=== PATIENT | female | born 1935 | race African-American/Black ===

== ENCOUNTER 2016-07-19 17:38 | Inpatient (IN) | payer OTHER ==
[~2016-07-19] VITALS: Ht 180.3 cm; Wt 123.1 kg
--- NOTE | ~2016-07-19 | HC ---
[facility] [place] [address] CONSULTATION Name: DELILAH GEIGER Room #: 428-P ADM IN M.R.#: [id number] Admission: 07/19/16 Attend Phys: Arnoldo Culp MD Discharge: Date of : 37 Report #: [id number] THIS REPORT FOR: //name// CC: Del Culp DATE OF SERVICE: 07/20/2016 REASON FOR CONSULTATION: Chronic kidney disease. HISTORY OF PRESENT ILLNESS: The patient is well known to our service with chronic kidney disease, chronic anemia, had been treated with Procrit and iron in our office. She was lost to followup. Apparently, she has been at [facility] where she has undergone EGD and colonoscopy for her anemia and according to the patient, nothing was found. She continues to have anemia. She has not been getting her Procrit. Her hemoglobin has fallen to 6.8. She is asymptomatic. She is at [facility] for rehabilitation. PAST MEDICAL HISTORY: Hypertension, diabetes, chronic kidney disease, anemia. She had previous cholecystectomy, appendectomy and hysterectomy. HOME MEDICATIONS: As listed from [facility] include Zetia 10 mg daily, Symbicort, Carafate, Cardizem-CD 420 mg daily, Nexium 40 mg daily, trazodone 50 mg at bedtime, Lyrica 100 mg b.i.d., aspirin 81 mg daily, atorvastatin 10 mg daily, iron 325 mg b.i.d., and Levemir. FAMILY HISTORY: Negative for renal disease, negative for diabetes, negative for heart disease. Positive for hypertension. REVIEW OF SYSTEMS: GENERAL: She has been feeling a little bit weak. EYES: Her vision has been okay. No problems there. ENT: Hearing okay, swallows okay. Denies mouth sores or ulcers. ENDOCRINE: Positive for the diabetes. RESPIRATORY: Denies shortness of breath, pleuritic pain, cough or hemoptysis. CARDIAC: Denies chest pain, angina or arrhythmia. No palpitations. GASTROINTESTINAL: Denies nausea, vomiting, diarrhea or bloody stools. GENITOURINARY: Good urinary stream without dysuria, hematuria or stones. NEUROLOGIC: Denies seizure, syncope or stroke. She does have some numbness in her feet. SKELETAL: Denies arthritis, but she is wheelchair bound and it is unclear as to why. SOCIAL HISTORY: Remote cigarettes, no alcohol. Lives at the extended care facility, hopes to go back home [place] [address] CONSULTATION Name: DELILAH GEIGER Room #: 428-P [facility] IN ..#: [id number] Admission: 07/19/16 Attend Phys: Arnoldo Culp MD Discharge: Date of : 36 Report #: [id number] PHYSICAL EXAMINATION: GENERAL: This is a reasonably well appearing, pale, elderly woman. SKIN: Otherwise, unremarkable. SKELETAL: Rather obese. HEENT: Extraocular movements are full. No scleral icterus. Hearing and vision intact. Mucous membranes moist. Tongue, buccal mucosa benign. NECK: Supple, no carotid bruits. CHEST: Clear to auscultation. HEART: Regular. ABDOMEN: Soft, no edema. ASSESSMENT AND PLAN: 1. Anemia. She has anemia of chronic disease. She has had workup including endoscopy, which has been negative. She was treated with IV iron as an outpatient. She was on Procrit, but was lost to followup. She needs to be continued on her Procrit shots. 2. Chronic kidney disease. She has diabetic and hypertensive chronic kidney disease with some degree of proteinuria. Currently, she has been on will need to consider . 3. Hypertension. 4. Weakness with chronic wheelchair dependence. By: [id number] Estuardo Ward MD /nt
--- NOTE | ~2016-07-19 | EKG ---
[address] [place] [address] ELECTROCARDIOGRAM REPORT Name: DELILAH GEIGER Room #: 428-P ADM IN M.R.#: [id number] Admission: 07/19/16 Attend Phys: Arnoldo Culp MD Discharge: Date of : 36 Report #: [id number] THIS REPORT FOR: //name// [facility] ED Test Date: 2016-07-19 Test Time: 19:28:13 Pat Name: DELILAH GEIGER Department: Room: [facility] Gender: F Edge Sander: TAWNYA : 1935 Requested By: Sander Ochoa Order Number: [id number] MD: Aníbal Shi Measurements Intervals [place] Rate: 82 P: -25 [place]: 150 QRS: -17 QRSD: 93 T: 25 QT: 385 QTc: 450 Interpretive Statements Sinus rhythm Borderline left axis deviation Low voltage, precordial leads Compared to ECG 05/31/2014 09:58:29 Low QRS voltage now present Atrial premature complex(es) no longer present Electronically Signed On 07-20-2016 7:38:10 CDT by Aníbal Shi [email or web address] <ELECTRONICALLY SIGNED> By: Aníbal Shi MD, [facility] 07/20/16 0738 192 27 Aníbal Shi MD, [facility] /EPI
[2016-07-19 17:38] VITALS: BP 137/67
[~2016-07-19 17:38] MED LIST: AMBIEN 10 MG TA10 MG PO; CARAFATE 1 GM TA1 G1 PO; CARDIZEM CD240 MG PO; CELEXA20 MG PO; COLACE100 MG PO; GLIPIZIDE 10 MG10 MG PO; NEURONTIN 300300 M1 PO; NEXIUM40 MG PO; NORCO 10-325 T1 EACH PO; POTASSIUM20 PO; PREDNISONE 10 M10 MG PO; SINGULAIR 10 MG10 M1 PO; SYMBICORT160 MCG/4. INH; TRIAMCINOLONE A80 G2 TOP; VITAMIN D 5050000 I1 PO; ZETIA10 MG PO
[2016-07-19 18:12] LABS: ABSOLUTE NEUTROPHILS 8.7 thou/uL (1.4-8.2); BASOPHILS 1.3 % (0.0-2.0); HEMATOCRIT 24.6 % (37.0-47.0); HEMOGLOBIN 7.7 gm/dL (12.0-15.0); LYMPHOCYTES 15.3 % (24.0-44.0); MCH 25.6 pg (26.0-34.0); MCHC 31.4 g/dL (28.0-37.0); MCV 81.5 fL (80.0-100.0); MONOCYTES 5.9 % (1.0-8.0); PLATELET COUNT 187 thou/uL (150-400); POLYS 74.5 % (36.0-66.0); RBC 3.02 mil/uL (4.20-5.00); RDW 19.5 % (10.5-14.5); WBC 11.6 thou/uL (4.0-11.0)
[2016-07-19 18:14] LABS: MANUAL DIFF NO
[2016-07-19 18:25] LABS: CALCIUM 9.3 mg/dL (8.5-10.1); CREATININE 3.6 mg/dL (0.6-1.0); POTASSIUM 4.3 mmol/L (3.5-5.1)
[2016-07-19 18:30] LABS: ALBUMIN 3.1 g/dL (3.4-5.0); TOTAL BILIRUBIN 0.2 mg/dL (<0.1-1.0); TOTAL PROTEIN 6.5 g/dL (6.4-8.2)
[2016-07-19 18:42] LABS: URINE BILIRUBIN NEGATIVE (Negative); URINE BLOOD 2+ (Negative); URINE COLOR YELLOW; URINE GLUCOSE-RANDOM* 1+ (Negative); URINE KETONES NEGATIVE (Negative); URINE NITRITE NEGATIVE (Negative); URINE PROTEIN (DIPSTICK) 1+ (Negative); URINE SPECIFIC GRAVITY 1.015 (1.003-1.035); URINE UROBILINOGEN 0.2 E.U./dl (0.2-1.0)
[2016-07-19 18:48] LABS: BACTERIA 1-9 Few /HPF (None Seen); CASTS None Seen /LPF (None Seen); CRYSTALS None Seen /LPF (None Seen); SQUAMOUS 4-10 Moderate /LPF (0-3); URINE RBC 0-2 Rare /HPF (0-2); URINE WBC 0-5 Rare /HPF (0-5)
[2016-07-19] MEDS ORDERED: CLARITIN10 MG PO (19:35)
[2016-07-19] MEDS ORDERED: FLONASE 0.05%50 MCG NASAL (19:35)
[2016-07-19] MEDS ORDERED: DUONEB 2.5-0.5 M3 ML INH (19:36)
[2016-07-19] MEDS ORDERED: MUCUS ER600 M1 PO (19:36)
[2016-07-19] MEDS ORDERED: TYLENOL325 MG PO (19:41)
[2016-07-19] MEDS ORDERED: TRAZODONE HCL50 MG PO (19:42)
[2016-07-19] MEDS ORDERED: CENTRUM SILVER1 EAC4 PO (19:42)
[2016-07-19] MEDS ORDERED: MIRALAX17 GM PO (19:43)
[2016-07-19] MEDS ORDERED: NORCO 5-325 TA1 EACH PO (19:43)
[2016-07-19] MEDS ORDERED: ASPIR 8181 MG PO (19:44)
[2016-07-19] MEDS ORDERED: LYRICA100 MG PO (19:44)
[2016-07-19] MEDS ORDERED: LIPITOR10 MG PO (19:45)
[2016-07-19] MEDS ORDERED: IRON325 PO (19:46)
[2016-07-19] MEDS ORDERED: LEVEMIR SUBQ (19:48)
[2016-07-19 21:21] VITALS: BP 144/72
[2016-07-19 22:20] VITALS: BP 157/68
[2016-07-20 04:00] VITALS: BP 109/60
[2016-07-20 06:26] LABS: HEMATOCRIT 21.9 % (37.0-47.0); MCH 25.9 pg (26.0-34.0); MCHC 31.9 g/dL (28.0-37.0); MCV 81.2 fL (80.0-100.0); RBC 2.7 mil/uL (4.20-5.00); RDW 19.4 % (10.5-14.5); WBC 9.1 thou/uL (4.0-11.0)
[2016-07-20 06:42] LABS: ALBUMIN 2.6 g/dL (3.4-5.0); ALKALINE PHOSPHATASE 60 U/L (46-116); ANION GAP 7 mmol/L (7-16); BUN 35 mg/dL (7-18); CALCIUM 8.9 mg/dL (8.5-10.1); CHLORIDE 110 mmol/L (98-107); CHOLESTEROL 112 mg/dL (<200); CO2 25 mmol/L (21-32); CREATININE 3.3 mg/dL (0.6-1.0); GLUCOSE 104 mg/dL (74-106); HDL CHOLESTEROL 43 mg/dL (>40); LDL CHOLESTEROL 57 mg/dL (<100); PHOSPHORUS 4.2 mg/dL (2.5-4.9); SGOT 13 U/L (15-37); SGPT 12 U/L (30-65); SODIUM 142 mmol/L (136-145); TC:HDL 2.6 Ratio (Not establshd); TOTAL BILIRUBIN 0.2 mg/dL (<0.1-1.0); TOTAL PROTEIN 5.7 g/dL (6.4-8.2); TRIGLYCERIDE 61 mg/dL (<150); VLDL 12 mg/dL (<40)
[2016-07-20 07:48] VITALS: BP 129/70
[2016-07-20 10:33] LABS: % SATURATION 10 % (20-39); IRON 19 ug/dL (50-170); TIBC 198 ug/dL (250-450); UIBC 179 ug/dL
[2016-07-20 15:52] VITALS: BP 126/61
[2016-07-20 19:45] VITALS: BP 132/72
[2016-07-20 23:07] LABS: URINE CREATININE-RANDOM* 90.4 mg/dL (Not Estab.); URINE PROTEIN-RANDOM* 37.9 mg/dL (Not Estab.)
[2016-07-21 04:24] VITALS: BP 120/56
[2016-07-21 05:56] LABS: RDW 19.1 % (10.5-14.5)
[2016-07-21 05:58] LABS: MCH 25.9 pg (26.0-34.0); MCHC 32.1 g/dL (28.0-37.0); MCV 80.9 fL (80.0-100.0); RBC 2.59 mil/uL (4.20-5.00); WBC 8.9 thou/uL (4.0-11.0)
[2016-07-21 06:19] LABS: HEMOGLOBIN 6.7 gm/dL (12.0-15.0)
[2016-07-21 07:30] VITALS: BP 143/68
[2016-07-21 08:55] VITALS: BP 147/72; BP 155/71
[2016-07-21 12:44] VITALS: BP 147/77; BP 155/71; BP 164/76
[2016-07-21 13:24] LABS: CALCIUM 9.4 mg/dL (8.5-10.1); CREATININE 3.1 mg/dL (0.6-1.0); POTASSIUM 3.7 mmol/L (3.5-5.1)
[2016-07-21 15:30] VITALS: BP 168/72
[2016-07-21 20:00] VITALS: BP 173/78
[2016-07-22 04:30] VITALS: BP 151/72
[2016-07-22 06:05] LABS: HEMATOCRIT 28.7 % (37.0-47.0); HEMOGLOBIN 9.5 gm/dL (12.0-15.0); MCH 26.7 pg (26.0-34.0); MCHC 33.3 g/dL (28.0-37.0); MCV 80.2 fL (80.0-100.0); RBC 3.57 mil/uL (4.20-5.00); RDW 17.6 % (10.5-14.5); WBC 10.2 thou/uL (4.0-11.0)
[2016-07-22 06:19] LABS: ALBUMIN 2.7 g/dL (3.4-5.0); CALCIUM 9.4 mg/dL (8.5-10.1); CREATININE 2.8 mg/dL (0.6-1.0); PHOSPHORUS 3.4 mg/dL (2.5-4.9); POTASSIUM 3.5 mmol/L (3.5-5.1)
[2016-07-22 07:27] VITALS: BP 139/62
[2016-07-22 16:28] VITALS: BP 148/75
[2016-07-22 20:00] VITALS: BP 146/65
[2016-07-23 04:42] LABS: HEMATOCRIT 29.3 % (37.0-47.0); HEMOGLOBIN 9.7 gm/dL (12.0-15.0)
[2016-07-23 04:53] LABS: CREATININE 2.8 mg/dL (0.6-1.0); POTASSIUM 3.2 mmol/L (3.5-5.1)
[2016-07-23 05:03] VITALS: BP 139/52
[2016-07-23 07:04] VITALS: BP 134/60
[2016-07-23] MEDS ORDERED: LASIX 40 MG TAB40 M1 PO (13:43)
[2016-07-23] MEDS ORDERED: K-DUR 20 MEQ T20 MEQ PO (13:43)
[2016-07-23] MEDS ORDERED: PROCRIT20000 UNIT SUBQ (13:43)
[2016-07-23] MEDS ORDERED: HUMALOG100 UNIT/1 SUBQ (13:43)
== END 2016-07-23 15:16 | DRG 378 ==
LOC: ER 17:38 → 4E 20:42 → EROBS 20:42 → 4E 21:39
PROVIDERS: Internal Medicine; Internal Medicine Gastroenterology; Internal Medicine Nephrology; Nurse Practitioner Adult Health; Nurse Practitioner Family; Physician Assistant
PROC: 30233N1 Transfusion of Nonautologous Red Blood Cells into Peripheral Vein, Percutaneous Approach (ICD-10-PCS; principal; 2016-07-21)
DX: K92.2 Gastrointestinal hemorrhage, unspecified (principal); D62 Acute posthemorrhagic anemia; N17.9 Acute kidney failure, unspecified; E78.5 Hyperlipidemia, unspecified; J44.9 Chronic obstructive pulmonary disease, unspecified; Z87.891 Personal history of nicotine dependence; D53.9 Nutritional anemia, unspecified; E11.22 Type 2 diabetes mellitus with diabetic chronic kidney disease; I12.9 Hypertensive chronic kidney disease with stage 1 through stage 4 chronic kidney disease, or unspecified chronic kidney disease; N18.9 Chronic kidney disease, unspecified; F41.9 Anxiety disorder, unspecified; G89.29 Other chronic pain; M54.9 Dorsalgia, unspecified; D50.9 Iron deficiency anemia, unspecified; E11.40 Type 2 diabetes mellitus with diabetic neuropathy, unspecified; Z88.2 Allergy status to sulfonamides; Z90.49 Acquired absence of other specified parts of digestive tract; Z90.710 Acquired absence of both cervix and uterus; Z82.49 Family history of ischemic heart disease and other diseases of the circulatory system; Z99.3 Dependence on wheelchair; Z79.899 Other long term (current) drug therapy
CPT/HCPCS: 10183

== ENCOUNTER 2020-04-12 14:52 | Inpatient (IN) | payer OTHER ==
[~2020-04-12] VITALS: Ht 180.3 cm; Wt 90.0 kg
--- NOTE | ~2020-04-12 | EMS ---
[place] [address] EMS Patient Care Report Name: DELILAH GEIGER Room #: REG BETZAIDA Mccabe#: [id number] Admission: 04/12/20 Attend Phys: Discharge: Date of : 36 Report #: [id number] THIS REPORT FOR: //name// Report Transmitted: 04/12/2020 14:57 EMS Care Summary [place], [place] Incident [id number] @ 04/12/2020 14:20 Incident [id number] [place] [address] 201 Patient DELILAH GEIGER Female, 84 Years 1935 Patient Address [id number] [place] [address] Patient History Dialysis, Patient Allergies No known allergies, Patient Medications None Reported, Chief Complaint cough Disposition Transported No Lights/[place] Dispatch Reason Sick Person Transported To [facility] Narrative pt found sitting upright in wheelchair and alert. pt a&ox4 gcs 15 and did not present in apparent distress. pt was given a facemask. pt complained of a cough x1 day. pt denied any other symptoms. pt denied a fever or flu like symptoms. [address] [address] EMS Patient Care Report Name: DELILAH GEIGER Room #: REG BETZAIDA Mccabe#: [id number] Admission: 04/12/20 Attend Phys: Discharge: Date of : 36 Report #: [id number] pt denied any known covid exposure. pt requested to be transported to [facility]. pt was wheeled into hallway. pt was transferred onto ems cot and was secured in a semi fowlers position without incident. pt was loaded into ambulance. pt was transported non emergent. transport was uneventful and pt rested on ems cot. pt care was transferred to appropriate staff and ems goes back in service. pts keys and phone were left with pt. Initial Vitals @14:32P: 100,R: 20,BP: 176/86,Pain: 0/10,GCS: 15,SpO2: 92,Revised Trauma: 12, @14:46P: 100,R: 20,BP: 176/82,GCS: 15,SpO2: 93,Revised Trauma: 12, Assessments @14:27MENTAL:No Abnormalities,SKIN:No Abnormalities,HEENT:Head/Face: No Abnormalities,Eyes: No Abnormalities,Neck/Airway: No Abnormalities,LUNG SOUNDS:General: No Abnormalities,Left Upper: No Abnormalities,Right Upper: No Abnormalities,Left Lower: No Abnormalities,Right Lower: No Abnormalities,ABDOMEN:General: No Abnormalities,Left Upper: No Abnormalities,Right Upper: No Abnormalities,Left Lower: No Abnormalities,Right Lower: No Abnormalities,PELVIS//GI:No Abnormalities,EXTREMITIES:Left Arm: No Abnormalities,Right Arm: No Abnormalities,Left Leg: No Abnormalities,Right Leg: No Abnormalities,PULSE:NEURO:No Abnormalities,@14:41MENTAL:No Abnormalities,SKIN:No Abnormalities,HEENT:Head/Face: No Abnormalities,Eyes: No Abnormalities,Neck/Airway: No Abnormalities,LUNG SOUNDS:General: No Abnormalities,Left Upper: No Abnormalities,Right Upper: No Abnormalities,Left Lower: No Abnormalities,Right Lower: No Abnormalities,ABDOMEN:General: No Abnormalities,Left Upper: No Abnormalities,Right Upper: No Abnormalities,Left Lower: No Abnormalities,Right Lower: No Abnormalities,PELVIS//GI:No Abnormalities,EXTREMITIES:Left Arm: No Abnormalities,Right Arm: No Abnormalities,Left Leg: No Abnormalities,Right Leg: No Abnormalities,PULSE:NEURO:No Abnormalities, Impression Cough Procedures @14:27ALS AssessmentResponse: UnchangedSucceeded Timeline 14:18,Call Received 14:18,Dispatch Notified 14:20,Dispatched 14:21,En Route 14:26,On Scene 14:27,At Patient 14:27,ALS Assessment,Response: UnchangedSucceeded, 14:32,BP: 176/86 M,PULSE: 100,RR: 20 R,SPO2: 92 Ox,ETCO2: ,BG: ,PAIN: 0,GCS: [address] [address] EMS Patient Care Report Name: DELILAH GEIGER Room #: REG [facility].#: [id number] Admission: 04/12/20 Attend Phys: Discharge: Date of : 37 Report #: [id number] 15, 14:38,Depart Scene 14:46,BP: 176/82 M,PULSE: 100,RR: 20 R,SPO2: 93 Ox,ETCO2: ,BG: ,PAIN: ,GCS: 15, 14:47,At Destination 14:57,Call Closed Disclaimer v1.1 Copyright 2020 [employer] This EMS Care Summary contains data elements from the applicable legal record (which may be displayed differently). It is designed to provide pertinent information for the following purposes: continuity of care, clinical quality, and state data reporting. The complete legal record is available to ED staff and administrators of the receiving hospital in [employer]'s Patient Tracker. All data is provided "as is."
[~2020-04-12 14:52] MED LIST changes: +ASPIR 8181 MG PO; +CENTRUM SILVER1 EAC4 PO; +CLARITIN10 MG PO; +DUONEB 2.5-0.5 M3 ML INH; +FLONASE 0.05%50 MCG NASAL; +HUMALOG100 UNIT/1 SUBQ; +IRON325 PO; +K-DUR 20 MEQ T20 MEQ PO; +LASIX 40 MG TAB40 M1 PO; +LEVEMIR SUBQ; +LIPITOR10 MG PO; +LYRICA100 MG PO; +MIRALAX17 GM PO; +MUCUS ER600 M1 PO; +NORCO 5-325 TA1 EACH PO; +PROCRIT20000 UNIT SUBQ; +TRAZODONE HCL50 MG PO; +TYLENOL325 MG PO
[2020-04-12 14:56] VITALS: BP 169/88
[2020-04-12 16:40] LABS: WBC 6.2 thou/uL (4.0-11.0)
[2020-04-12 16:42] LABS: ANION GAP 8 mmol/L (7-16); BUN 50 mg/dL (7-18); CALCIUM 8.4 mg/dL (8.5-10.1); CHLORIDE 102 mmol/L (98-107); CO2 26 mmol/L (21-32); CREATININE 6.1 mg/dL (0.6-1.0); GLUCOSE 91 mg/dL (74-106); HEMATOCRIT 30.4 % (37.0-47.0); HEMOGLOBIN 9.4 gm/dL (12.0-15.0); MCH 26.7 pg (26.0-34.0); MCV 86.1 fL (80.0-100.0); PLATELET COUNT 200 thou/uL (150-400); POTASSIUM 4.8 mmol/L (3.5-5.1); RBC 3.53 mil/uL (4.20-5.00); SODIUM 136 mmol/L (136-145)
[2020-04-12 16:53] LABS: ALBUMIN 3.7 g/dL (3.4-5.0); AMYLASE 93 U/L (25-115); DIRECT BILIRUBIN < 0.1 mg/dL (<0.1-0.2); LIPASE 107 U/L (73-393); MAGNESIUM 2.3 mg/dL (1.8-2.4); SGOT 22 U/L (15-37); SGPT 30 U/L (14-59); TOTAL BILIRUBIN 0.3 mg/dL (0.2-1.0); TOTAL PROTEIN 6.3 g/dL (6.4-8.2); TROPONIN-I <0.06 ng/mL (<0.06)
[2020-04-12 17:13] LABS: ABSOLUTE NEUTROPHILS 4.5 thou/uL (1.4-8.2)
[2020-04-12 17:14] LABS: OVALOCYTES FEW; SCHISTOCYTES 1+; TARGET CELLS 1+
[2020-04-12] MEDS ORDERED: TORSEMIDE10 MG PO (17:31)
[2020-04-12] MEDS ORDERED: NORCO 10-325 T1 EACH PO (17:31)
[2020-04-12] MEDS ORDERED: DILTIAZEM ER420 MG PO (17:32)
[2020-04-12] MEDS ORDERED: NEURONTIN 300M300 M2 PO (17:32)
[2020-04-12 17:59] LABS: ALBUMIN 3.7 g/dL (3.4-5.0); TOTAL PROTEIN 6.4 g/dL (6.4-8.2)
[2020-04-12 22:09] VITALS: BP 144/68
[2020-04-12 22:56] VITALS: BP 161/81
[2020-04-12 23:06] VITALS: BP 134/74
[2020-04-13 01:22] LABS: URINE BILIRUBIN NEGATIVE (Negative); URINE BLOOD TRACE (Negative); URINE CLARITY CLEAR; URINE COLOR YELLOW; URINE GLUCOSE-RANDOM* TRACE (Negative); URINE KETONES 1+ (Negative); URINE LEUKOCYTES-REFLEX NEGATIVE (Negative); URINE NITRITE-REFLEX NEGATIVE (Negative); URINE PROTEIN (DIPSTICK) 2+ (Negative); URINE SPECIFIC GRAVITY 1.015 (1.005-1.035); URINE UROBILINOGEN 0.2 E.U./dl (0.2-1.0)
[2020-04-13 01:42] LABS: BACTERIA-REFLEX 1-9 Few /HPF (None Seen); CASTS None Seen /LPF (None Seen); CRYSTALS None Seen /LPF (None Seen); MUCUS 0-3 Light strn/LPF (None Seen); SQUAMOUS 0-3 Few /LPF (0-3); URINE RBC 0-2 Rare /HPF (0-2); URINE WBC-REFLEX 6-15 Few /HPF (0-5)
[2020-04-13 01:43] LABS: WBC CLUMPS Few (None Seen)
[2020-04-13 03:07] VITALS: BP 150/77
[2020-04-13 07:28] VITALS: BP 152/79
[2020-04-13 11:25] VITALS: BP 170/99
[2020-04-13 11:32] LABS: ALBUMIN 3.4 g/dL (3.4-5.0); CALCIUM 8.3 mg/dL (8.5-10.1); CREATININE 6.1 mg/dL (0.6-1.0); PHOSPHORUS 4.2 mg/dL (2.6-4.7)
[2020-04-13 16:05] VITALS: BP 169/83
[2020-04-13 22:30] VITALS: BP 167/77
[2020-04-14 05:45] LABS: ALBUMIN 3.3 g/dL (3.4-5.0); CALCIUM 8.6 mg/dL (8.5-10.1); PHOSPHORUS 4.1 mg/dL (2.5-4.9); POTASSIUM 4.7 mmol/L (3.5-5.1)
[2020-04-14 05:50] VITALS: BP 163/89
--- NOTE | 2020-04-14 07:25 | EKG ---
[address] [address] ELECTROCARDIOGRAM REPORT Name: DELILAH GEIGER Room #: 359-P ADM IN M.R.#: [id number] Admission: 04/12/20 Attend Phys: Jeffrey Francisco MD Discharge: Date of : 36 Report #: [id number] [facility] ED Test Date: 2020-04-12 Test Time: 17:14:13 Pat Name: DELILAH GEIGER Department: Room: [facility] Gender: F Tool Straightener: JCHAIJAYANTZ : 1935 Requested By: Yadiel Correa Order Number: [id number] MD: Aníbal Shi Measurements Intervals [place] Rate: 90 P: 66 [place]: 177 QRS: -36 QRSD: 102 T: 42 QT: 382 QTc: 468 Interpretive Statements Sinus rhythm Atrial premature complexes Left axis deviation Abnormal R-wave progression, late transition Compared to ECG 07/19/2016 19:28:13 Atrial premature complex(es) now present Electronically Signed On 04-14-2020 7:25:36 CARE PROGRAM RESIDENT by Aníbal Shi [email or web address] <ELECTRONICALLY SIGNED> By: Aníbal Shi MD, [facility] 04/14/20 0725 1714 1714 Aníbal Shi MD, [facility] /EPI
[2020-04-14 08:00] VITALS: BP 169/87
[2020-04-14 12:00] VITALS: BP 154/96
[2020-04-14] MEDS ORDERED: METOPROLOL TART25 MG PO (12:19)
[2020-04-14] MEDS ORDERED: DILTIAZEM ER420 MG PO (12:19)
[2020-04-14 15:37] VITALS: BP 154/96
[2020-04-14 15:38] VITALS: BP 147/104
[2020-04-14 20:41] VITALS: BP 163/75
[2020-04-15 04:16] VITALS: BP 125/67
[2020-04-15 12:42] VITALS: BP 135/70
== END 2020-04-15 18:13 | DRG 291 ==
LOC: ER 14:52 → EROBS 21:26 → 3W 21:26
PROVIDERS: Emergency Medicine; Hospitalist; Internal Medicine; Nurse Practitioner Family; ADMIT Hospitalist; ATTEND Hospitalist
PROC: 5A1D70Z Performance of Urinary Filtration, Intermittent, Less than 6 Hours Per Day (ICD-10-PCS; principal; 2020-04-14)
DX: I13.2 Hypertensive heart and chronic kidney disease with heart failure and with stage 5 chronic kidney disease, or end stage renal disease (principal); N18.6 End stage renal disease; I50.31 Acute diastolic (congestive) heart failure; J81.1 Chronic pulmonary edema; E11.22 Type 2 diabetes mellitus with diabetic chronic kidney disease; E78.5 Hyperlipidemia, unspecified; J44.9 Chronic obstructive pulmonary disease, unspecified; F41.9 Anxiety disorder, unspecified; D50.9 Iron deficiency anemia, unspecified; Z20.822 Contact with and (suspected) exposure to COVID-19; Z99.2 Dependence on renal dialysis; Z79.4 Long term (current) use of insulin; Z79.899 Other long term (current) drug therapy; Z88.2 Allergy status to sulfonamides; Z87.891 Personal history of nicotine dependence; Z90.49 Acquired absence of other specified parts of digestive tract; Z90.710 Acquired absence of both cervix and uterus
CPT/HCPCS: 10879; 32100

== ENCOUNTER 2020-07-03 15:30 | Emergency (ER) | payer OTHER ==
[~2020-07-03] VITALS: Ht 177.8 cm; Wt 78.9 kg
[~2020-07-03 15:30] MED LIST changes: +DILTIAZEM ER420 MG PO; +METOPROLOL TART25 MG PO; +NEURONTIN 300M300 M2 PO; +TORSEMIDE10 MG PO
[2020-07-03 16:31] LABS: ABSOLUTE NEUTROPHILS 3.9 thou/uL (1.4-8.2); BASOPHILS 1.5 % (0.0-2.0); EOSINOPHILS 1.8 % (0.0-3.0); HEMATOCRIT 34.9 % (37.0-47.0); HEMOGLOBIN 11.1 gm/dL (12.0-15.0); MCH 26.1 pg (26.0-34.0); MCHC 31.7 g/dL (28.0-37.0); MCV 82.4 fL (80.0-100.0); MONOCYTES 13.1 % (1.0-8.0); PLATELET COUNT 191 thou/uL (150-400); POLYS 56.6 % (36.0-66.0); RBC 4.24 mil/uL (4.20-5.00); RDW 17.5 % (10.5-14.5)
[2020-07-03 16:41] LABS: ANION GAP 8 mmol/L (7-16); BUN 23 mg/dL (7-18); CALCIUM 8.9 mg/dL (8.5-10.1); CHLORIDE 98 mmol/L (98-107); CO2 30 mmol/L (21-32); GLUCOSE 160 mg/dL (74-106); SODIUM 136 mmol/L (136-145)
[2020-07-03 16:48] LABS: ALBUMIN 3.1 g/dL (3.4-5.0); DIRECT BILIRUBIN < 0.1 mg/dL (<0.1-0.2); LIPASE 125 U/L (73-393); SGOT 17 U/L (15-37); SGPT 18 U/L (30-65); TOTAL BILIRUBIN 0.3 mg/dL (0.2-1.0); TOTAL PROTEIN 7.1 g/dL (6.4-8.2)
[2020-07-03] MEDS ORDERED: HYDROCODON-ACE1 EAC7 PO (18:28)
[2020-07-03 18:46] VITALS: BP 128/58
== END 2020-07-03 18:47 | disposition home or self-care (01) ==
LOC: ER 15:30
PROVIDERS: Nurse Practitioner
DX: R10.32 Left lower quadrant pain (principal); M25.552 Pain in left hip; G89.29 Other chronic pain; E78.5 Hyperlipidemia, unspecified; D64.9 Anemia, unspecified; I10 Essential (primary) hypertension; J44.9 Chronic obstructive pulmonary disease, unspecified; F41.9 Anxiety disorder, unspecified; Z79.899 Other long term (current) drug therapy; Z88.2 Allergy status to sulfonamides

== ENCOUNTER 2020-08-20 10:36 | Emergency (ER) | payer OTHER ==
[~2020-08-20] VITALS: Ht 180.3 cm; Wt 78.9 kg
[~2020-08-20 10:36] MED LIST changes: +HYDROCODON-ACE1 EAC7 PO
[2020-08-20 15:09] VITALS: BP 111/50
== END 2020-08-20 15:09 | disposition home or self-care (01) ==
LOC: ER 10:36
DX: S09.8XXA Other specified injuries of head, initial encounter (principal); M25.512 Pain in left shoulder; M25.552 Pain in left hip; J44.9 Chronic obstructive pulmonary disease, unspecified; Z87.891 Personal history of nicotine dependence; Z88.2 Allergy status to sulfonamides; Z79.899 Other long term (current) drug therapy; Z79.4 Long term (current) use of insulin; Z86.2 Personal history of diseases of the blood and blood-forming organs and certain disorders involving the immune mechanism; W17.89XA Other fall from one level to another, initial encounter; Y93.89 Activity, other specified; Y92.89 Other specified places as the place of occurrence of the external cause; Y99.8 Other external cause status

== ENCOUNTER 2020-08-22 20:35 | Inpatient (IN) | payer OTHER ==
[~2020-08-22] VITALS: Ht 180.3 cm; Wt 84.9 kg
[2020-08-22 20:37] VITALS: BP 115/61
[2020-08-22 22:32] LABS: CALCIUM 9.5 mg/dL (8.5-10.1); CREATININE 4.1 mg/dL (0.6-1.0); POTASSIUM 4.5 mmol/L (3.5-5.1)
[2020-08-22 23:12] LABS: ABSOLUTE NEUTROPHILS 5.6 thou/uL (1.4-8.2); BASOPHILS 0.8 % (0.0-2.0); EOSINOPHILS 1.6 % (0.0-3.0); HEMATOCRIT 31.7 % (37.0-47.0); HEMOGLOBIN 9.9 gm/dL (12.0-15.0); MCH 25.3 pg (26.0-34.0); MCHC 31.2 g/dL (28.0-37.0); MCV 80.9 fL (80.0-100.0); MONOCYTES 13.2 % (1.0-8.0); PLATELET COUNT 202 thou/uL (150-400); POLYS 70.4 % (36.0-66.0); RBC 3.92 mil/uL (4.20-5.00); RDW 18.5 % (10.5-14.5)
[2020-08-23 00:49] LABS: URINE BILIRUBIN NEGATIVE (Negative); URINE BLOOD TRACE (Negative); URINE CLARITY CLEAR; URINE COLOR YELLOW; URINE GLUCOSE-RANDOM* TRACE (Negative); URINE KETONES NEGATIVE (Negative); URINE LEUKOCYTES-REFLEX NEGATIVE (Negative); URINE NITRITE-REFLEX NEGATIVE (Negative); URINE PROTEIN (DIPSTICK) 2+ (Negative); URINE UROBILINOGEN 0.2 E.U./dl (0.2-1.0)
[2020-08-23 01:19] LABS: BACTERIA-REFLEX 1-9 Few /HPF (None Seen); CASTS None Seen /LPF (None Seen); CRYSTALS None Seen /LPF (None Seen); MUCUS 0-3 Light strn/LPF (None Seen); SQUAMOUS 0-3 Few /LPF (0-3); URINE RBC 1-2 Rare /HPF (NONE SEEN); URINE WBC-REFLEX 0-5 Rare /HPF (0-5)
[2020-08-23 03:35] VITALS: BP 110/44
--- NOTE | 2020-08-23 07:05 | NUR ---
TOOK OVER CARE FROM DANE TAYLOR AT THIS TIME
--- NOTE | 2020-08-23 08:44 | NUR ---
WENT TO GIVEN PT PO TYLENOL FOR STATED PAIN. PT TOO DROWSY AT THIS TIME TO SAFELY ADMINISTER MEDICAITON. PT DAUGHTER AT BEDSIDE. CALL LIGHT WITHIN REACH
[2020-08-23 09:22] VITALS: BP 116/38
--- NOTE | 2020-08-23 09:55 | NUR ---
REPORT GIVEN TO DANE CHAIDEZ PT READY TO TRANSFER
[2020-08-23 10:00] VITALS: BP 106/35
[2020-08-23 10:56] VITALS: BP 103/38
--- NOTE | 2020-08-23 11:24 | EKG ---
[address] [address] ELECTROCARDIOGRAM REPORT Name: DELILAH GEIGER Room #: 455-P ADM IN M.R.#: [id number] Admission: 08/23/20 Attend Phys: Rekha Marin MD Discharge: Date of : 37 Report #: [id number] [facility] ED Test Date: 2020-08-22 Test Time: 23:16:32 Pat Name: DELILAH GEIGER Department: Room: [facility] Gender: F Consumer Safety Inspector: mpark : 1935 Requested By: Frandy Barraza Order Number: [id number] MD: Manas Raman Measurements Intervals [place] Rate: 83 P: 54 OR: 177 QRS: -29 QRSD: 111 T: 17 QT: 410 QTc: 482 Interpretive Statements Sinus rhythm Atrial premature complexes Probable left atrial enlargement Borderline left axis deviation Low voltage, precordial leads RSR' in V1 or V2, probably normal variant Compared to ECG 04/12/2020 17:14:13 Low QRS voltage now present RSR' in V1 or V2 now present Electronically Signed On 08-23-2020 11:24:15 CDT by Manas Raman [email or web address] <ELECTRONICALLY SIGNED> By: Manas Raman MD 08/23/20 1124 2316 2316 Manas Raman MD /EPI
--- NOTE | 2020-08-23 12:26 | NUR ---
ASSUMED PT CARE UPON ADMISSION TO UNIT FROM ED AROUND 1030. PATIENT IS A&OX3 AND ABLE TO MAKE ALL NEEDS KNOWN. PATIENT REPORTS WEAKNESS IN BILATERAL LOWER EXTREMETIES WELL PAIN IN THE LOWER EXTREMETIES. PATIENT HAS AN IV, SALINE LOCKED. PATIENT HAS A FISTULA TO THE LEFT UPPER ARM, LIMB ALERT BRACELET PLACED ON LEFT ARM. PATIENT REPORTS RECEIVING DIALYSIS ON MWF, AND IS UP TO DATE ON HER DIALYSIS. BLOOD PRESSURE MEDICATION HELD DUE TO PATIENT BLOOD PRESSURE. PATIENT REFUSED IRON TABLET ORDERED, RELAYING THAT SHE DOES NOT TAKE THIS MEDICATION. PATIENT REPORTS BEING INCONTINENT. FALL PRECAUTIONS ARE IN PLACE, CALL LIGHT WITHIN REACH. PATIENT SLEEPING AT THIS TIME, WILL ATTEMPT TO HAVE PATIENT SIGN CONSENTS WHEN AWAKE.
[2020-08-23 15:56] VITALS: BP 100/34
[2020-08-23 21:16] VITALS: BP 130/43
--- NOTE | 2020-08-24 03:37 | NUR ---
RECEIVED CARE OF THIS PATIENT AT 1900. PATIENT ALERT AND ORIENTED X3-4. NOT ALWAYS PLACE. L UPPER FISTULA. GOOD BRUIT AND THRILL. HAS DIALYSIS M/W/F. ACCUCHECK WAS 121, RECEIVED NO COVERAGE. C/O PAIN, MED GIVEN. SLEPT MOST OF THE NIGHT.
[2020-08-24 08:30] VITALS: BP 120/54
--- NOTE | 2020-08-24 17:08 | NUR ---
Patient complained of pain in low back and legs, pain medication given and worked, no n/v, had a rest on the chair, back to the bed now.
[2020-08-24 19:28] VITALS: BP 127/50
--- NOTE | 2020-08-25 03:07 | NUR ---
PT CARE ASSUMED WITH PT IN BED WATCHING TV AT SHIFT CHANGE.PT IS A/O X4.PT IS ON BEDREST.PT HAS DIALYSIS ACCESS AV FISTULA GRANT AND HAS DIALYSIS M--.PT HAS BLE EDEMA +1.PT IS ACCUCHECK ACHS WITH SSI.PT APPEAR TO BE IN NO ACUTE DISTRESS.WILL CONTINUE TO MONITOR
[2020-08-25 08:39] VITALS: BP 121/53
--- NOTE | 2020-08-25 16:38 | NUR ---
PT ADMITTED RELATED TO WEAKNESS, RECENT FALL OUT OF W/C. CM REVEIWED CHART AND SPOKE WITH CARE TEAM. CM MET WITH PT AT BEDSIDE THIS DAY. PT APPEARED TO BE A&O X4. CM ROLE INTRODUCED. PT INDICATED SHE LIVES IN AN INDEPEDNENT APARTMENT AT THE [facility] IN [place]. 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 PT INDICATED SHE DOES OP HD AT [facility] M, W,F, 10:45 CHIAR TIME AND THAT THE WHOLE PERSON PROVIDES HER TRANSPORT. PT INICATED SHE HAD BEEN INDEPDENENT WITH [facility] HOME ECONOMICS TEACHER. PT STATED SHE HAD BEEN SKILLED AT [facility] IN THE PAST AND THAT SHE WOULD BE INTERESTED IN GOING THERE AGAIN UPON DC IF POSSIBLE. CM FAXED REFERRAL AND THE CAN ACCEPT. PT HAS AUTO AUTH BUT THEY NEED A HEP PANEL TO ESTABLISH PT WITH AN IN HOUSE HD CHAIR TIME. CM REQUESTED HEP PANEL FROM PHYSICIAN. CM FOLLOWING REGARDING POSSIBLE DC TOMORROW TO [facility].
--- NOTE | 2020-08-25 20:07 | NUR ---
Assumed pt care at 7am.Pt in bed alert and oriented x4. Assessment completed. vss.Pt wanted hemodialysis early this shift per regular scheduled at home. Dr Yoder notified,he rounded on pt. Hemodialysis done and completed mid afternoon.Pt c/o bilateral leg pain and requested for tylenol.It was given as ordered but pt said it doesn't work like gabapentin.Fall bundle in place for pt safety. Report off to chris rn.
[2020-08-25 20:23] VITALS: BP 118/56
--- NOTE | 2020-08-26 03:18 | NUR ---
PT CARE ASSUMED WITH PT IN CHAIR WATCHING TV AT 1900.PT IS A/O X4.PT IS UP WITH X1 ASSIST WITH WALKER AND GAIT BELT TO [facility].PT C/O ITCHING AND INFRASTRUCTURE DIRECTOR SARAH NOTIFIED AND BENADRYL GIVEN WITH RELIEF.PT HAD A BM DURING SHIFT.PT IS ACCUCHECK ACHS WITH SSI.DIALYSIS ACCESS ON GRANT AV FISTULA.WILL CONTINUE TO MONITOR PER POC
[2020-08-26 07:43] VITALS: BP 107/41
[2020-08-26 12:10] LABS: ALBUMIN 2.5 g/dL (3.4-5.0); DIRECT BILIRUBIN < 0.1 mg/dL (<0.1-0.2); SGOT 20 U/L (15-37); SGPT 21 U/L (14-59); TOTAL BILIRUBIN 0.3 mg/dL (0.2-1.0); TOTAL PROTEIN 6.5 g/dL (6.4-8.2)
--- NOTE | 2020-08-26 15:13 | NUR ---
HEP PANEL HADN'T BEEN ORDERED YESTERDAY EVENING REQUESTED. IT HAD SINCE BEEN DRAWN AND IS PENDING. CM CONVEYED THIS TO [facility]. CM FAXED UPDATED CLINICAL. PT IS TO GET DIALYSIS TOMORROW. CM FOLLOWING REGARDING DC LATER THIS AFTERNOON OR TOMORROW AFTER DIALYSIS.
[2020-08-26 15:37] VITALS: BP 120/63
--- NOTE | 2020-08-26 15:48 | NUR ---
ASSUMP PATIENT AT 7:00 AM. NONE INSULINE GIVEN AND 3 UNITES GIVEN PER POTOCOL. MORNING BP MEDICINE WERE HELD DUE TO LOW BP AND PT REFUSED TO TAKE IRON PILL DUE TO TAKE IT DURING DIALYSIS. PERFORMED COVID TEST AND RESULT NEGATIVE. PT REPORT PAIN ON LEGS AND GIVEN GABAPENTINE. PT REPORT PARCIAL RELIEF AFTER 1 HOUR REASSESSMENT. FALL RISK INTERVENTIONS APPLIED. WILL KEEP MONITOR PATIENT FOR VITAL SIGN, I&O AND SAFETY UNTIL SHIFT END.
[2020-08-26 20:00] VITALS: BP 170/108
[2020-08-26 22:21] VITALS: BP 114/56
--- NOTE | 2020-08-27 03:15 | NUR ---
PT CARE ASSUMED WITH PT SITTING IN CHAIR WATCHING TV.PT IS A/O X4.PT C/O HEART BURN AND DR ESPINOSA NOTIFIED AND ATIF ORDERED PRN.PT VOMITEED ONCE AND FELT BETTER AFTER VOMITING.PT TAKE MEDICATIONS WHOLE WITH NO ISSUES.PT HAS DIALYSIS ON -- AND DIALYSIS ACCESS ON GRANT AV FISTULA.PT HAS TYLENOL FOR PAIN MANGEMENT.PT IS UP X1 TO [facility] WITH GAIT BELT AND WALKER.WILL CONTINUE TO MONITOR
[2020-08-27 07:09] LABS: HAV IgM AB (ANTI-HAV IgM) Negative (Negative); HEPATITIS B SURFACE AG Negative (Negative); HEPATITIS C VIRUS AB <0.1 (0.0-0.9)
[2020-08-27 10:05] VITALS: BP 109/60
[2020-08-27 11:47] VITALS: BP 115/65
--- NOTE | 2020-08-27 14:09 | NUR ---
CARE TEAM INDICATED THAT PT IS MEDICALLY STABLE TO DC TO [facility] THIS DAY. PT IS FINISHED WITH DIALYSIS TREATMENT. ORDERS COMPLETED. CM FAXED TO [facility]. CHART COPY MADE. WHEELCHAIR VAN TRANSPORT ARRANGED FOR 1529. CM NOTIFED PT AND HER DEV OPS ENGINEER WHO WAS VISITING. PT TO HAVE IN HOUSE DIALYSIS WHILE AT THE [facility]. NO OTHER CM INTERVENTION INDICATED. CASE CLOSED.
--- NOTE | 2020-08-27 15:11 | NUR ---
Assumed pt care at 7am.Pt in bed resting .Assessment completed.vss.Dr Yoder rounded on pt,hemodialysis order noted.Pt ate breakfast before starting hemodialysis.Dr Gaviria here,dc order noted.Cm assisted with dc planning. Hemodialysis treatment completed around 1300.Per dx report, 2.3liter of fluid was taken off today.Pt dc to [facility] at 1510 per van accompanied by her gdts.
== END 2020-08-27 15:31 | DRG 682 ==
LOC: ER 20:35 → EROBS 08-23 07:36 → 4W 08-23 07:36
PROVIDERS: Hospitalist; Nurse Practitioner; ADMIT Hospitalist; ATTEND Hospitalist
PROC: 5A1D70Z Performance of Urinary Filtration, Intermittent, Less than 6 Hours Per Day (ICD-10-PCS; principal; 2020-08-25)
PROC: 5A1D70Z Performance of Urinary Filtration, Intermittent, Less than 6 Hours Per Day (ICD-10-PCS; 2020-08-27)
DX: I12.0 Hypertensive chronic kidney disease with stage 5 chronic kidney disease or end stage renal disease (principal); N18.6 End stage renal disease; Z20.822 Contact with and (suspected) exposure to COVID-19; G89.29 Other chronic pain; M54.9 Dorsalgia, unspecified; E78.5 Hyperlipidemia, unspecified; J44.9 Chronic obstructive pulmonary disease, unspecified; F41.9 Anxiety disorder, unspecified; E11.22 Type 2 diabetes mellitus with diabetic chronic kidney disease; R53.81 Other malaise; M79.10 Myalgia, unspecified site; K59.00 Constipation, unspecified; D63.8 Anemia in other chronic diseases classified elsewhere; K21.9 Gastro-esophageal reflux disease without esophagitis; Z88.2 Allergy status to sulfonamides; Z87.891 Personal history of nicotine dependence; W05.0XXA Fall from non-moving wheelchair, initial encounter; Y93.89 Activity, other specified; Y92.89 Other specified places as the place of occurrence of the external cause; Y99.8 Other external cause status
CPT/HCPCS: 10047; 32100